=== PATIENT | female | born 1970 ===

== ENCOUNTER 2016-09-14 18:56 | Emergency (ER) | payer OTHER ==
[2016-09-14] MEDS ORDERED: HYDROmorphone 1 MG/ML SYRINGE IVP STA (21:41)
[2016-09-14] MEDS ORDERED: PROMETHAZINE INJ 25 MG in SODIUM CHLORIDE 0.9% 50 ML IV STA (21:41)
[2016-09-14] MEDS ORDERED: HYDROmorphone 1 MG/ML SYRINGE ONE (21:46)
[2016-09-14] MEDS ORDERED: PROMETHAZINE 25 MG/1 ML VIAL ONE (21:46)
[2016-09-14] MEDS ORDERED: IOPAMIDOL-300 100 ML VIAL IVP ONE (22:08)
[2016-09-14] MEDS ORDERED: HYDROcod/ACET 5/325 Prepack 6 PO STA (22:39)
[2016-09-14] MEDS ORDERED: HYDROcod/ACET 5/325 Prepack 6 PO ONE (22:52)
[2016-09-14] MEDS ORDERED: ONDANSETRON ODT 4 MG Prepack 2 TL ONE (22:59)
[2016-09-14] MEDS ORDERED: ONDANSETRON ODT 4 MG Prepack 2 TL STA (23:00)
== END 2016-09-14 23:07 | disposition home or self-care (01) ==
DX: M54.6 Pain in thoracic spine (principal); M54.2 Cervicalgia; M54.5 Low back pain; G89.29 Other chronic pain; F17.200 Nicotine dependence, unspecified, uncomplicated; R03.0 Elevated blood-pressure reading, without diagnosis of hypertension
CPT/HCPCS: 36415; 71275; 80053; 81001; 81025; 83690; 85025; 96374; 96375; 99283; 99284; J1170; Q9967

== ENCOUNTER 2019-12-19 13:54 | Outpatient (CLI) | payer OTHER, MEDICARE ==
--- NOTE | 2019-12-19 15:55 | MRI Report ---
PROCEDURE: Pelvis W/O INDICATIONS: PAIN IN RT LEG, PAIN IN RT HIP, PELVIC/PERINEA TECHNIQUE: Noncontrast coronal T1 spin echo and STIR through the bony pelvis. Sagittal T2 FSE with fat saturati on, oblique axial PD FSE and T2 FSE with fat saturation through the symphysis pubis. COMPARISON: None. FINDINGS: Image quality: Excellent. Tendons and muscles: The attachments of the rectus abdominis and adductor longus muscles anterior to the pubic bodies appear intact bilaterally. The intervening common aponeurosis demonstrates normal morphology and signal. More inferiorly, the adductor longus musculotendinous junctions appear normal , without tendinopathy or tears. More inferior images demonstrate no fascial herniations of the addu ctor longus muscle fibers. Bony structures: No focal bone marrow edema around the symphysis pubis. No productive or erosive [place] changes to suggest osteitis pubis. No stress fractures. No suspicious marrow space occupying les ions. Other tendons: The gluteus medius and minimus tendons appear intact, without associated muscle atrop hy. The iliopsoas tendon appears intact, without adjacent bursal fluid collections. The origin of t he hamstring tendons are intact at the ischial tuberosities. Hip joints: Larger field of view images demonstrate no avascular necrosis of the femoral heads. The acetabular labrum appears intact in the absence of intra-articular contrast. Soft tissues: Immediately lateral to the rectus abdominis tendon fibers, the superficial rings of th e inguinal canals demonstrate no hernias. The proximal sciatic neurovascular bundles appear normal a djacent to the hamstring tendons. No free pelvic fluid. Bladder wall thickness is normal. Genitour inary structures and bowel loops appear normal where visualized. IMPRESSION: No trauma found, no evidence of bursitis or osteoarthritis identified. Within the pelvis visualized a mass lesion or inflammatory process and impinging on the lumbosacral plexus is not found. Etiology o f persistent asymmetric right-sided predominant pelvic and hip pain is not identified. Reviewed by: Jovany Mccracken MD on 12/19/2019 3:53 PM PDT Approved by: Jovany Mccracken MD on 12/19/2019 3:53 PM PDT Station ID: [id number]
== END 2019-12-19 13:55 | disposition home or self-care (01) ==
LOC: DI 13:54
PROVIDERS: ATTEND Family Medicine
DX: M25.551 Pain in right hip (principal); M79.661 Pain in right lower leg; R10.2 Pelvic and perineal pain
CPT/HCPCS: 72195

== ENCOUNTER 2020-11-15 23:48 | Emergency (ER) | payer MEDICARE, OTHER ==
--- OUTSIDE RECORDS SUMMARY | 2020-11-15 23:51 | EXTERNAL MEDICAL SUMMARY RPT | Continuity of Care Document ---
:1970 Demographics Phone Unavailable Preferred Language Citizen Of [place] Marital Status Unknown Presybeterian Affiliation Unknown Race Unknown Ethnic Group Unknown Author Organization [place] Address [address] [phone] Phone Care Team Providers Name Role Phone Dheeraj Davis Unavailable Unavailable Allergies Encounters Medications date description facility 20201111 Loratadine 10 MG Oral Tablet [facility] [id number] Amlodipine 10 MG Oral Tablet [facility] [id number] montelukast 10 MG Oral Tablet [facility] Problems date description facility 20201008 Encounter for preprocedural laboratory examination [facility] 20201008 [facility]) [facility] Procedures date description facility 20201114 [facility] 20201008 [facility] Results Vital Signs date measurement value source 20201008 weight_standard 74.84 lb 20201008 weight_metric 33.95 kg 20201008 temperature_standard 97.5 F 20201008 temperature_metric 36.39 C 20201008 respiration_rate 16 /min 20201008 height_standard 65 in 20201008 height_metric 165.1 cm 20201008 heart_rate 80 /min 20201008 BP_systolic 118 mm[Hg] 20201008 BP_diastolic 60 mm[Hg] 20201008 BMI 27.4 kg/m2 20201114 weight_standard 72.58 lb 20201114 weight_metric 32.92 kg 20201114 temperature_standard 98.1 F 20201114 temperature_metric 36.72 C 20201114 respiration_rate 16 /min 20201114 height_standard 65 in 20201114 height_metric 165.1 cm [id number] heart_rate 75 /min 20201114 BP_systolic 144 mm[Hg] [id number] BP_diastolic 92 mm[Hg] 20201114 BMI 26.6 kg/m2
--- NOTE | 2020-11-15 23:56 | ED Physician Documentation ---
History of Present Illness - Stated complaint Stated Complaint: L SIDE FACE PX - History obtained from History obtained from: Patient - History of Present Illness Timing: Yesterday Pain level now: 4 Improved by: nothing Worsened by: no exacerbating factors - Additonal information Additional information: patient complains of left sided headache that began yesterday. She was treated and released from [facility] emergency department yesterday for this and underwent work up that was based on chief complaint of headache. tests included CT head which was unremarkable. She was discharged with diagnosis of migraine headache. She says the pain has worsened, and now she has developed lesions on the left side of her face and forehead. Denies history of similar symptoms. She has a history of having had chickenpox Review of Systems Constitutional: reports: Reviewed and negative Eyes: reports: Reviewed and negative Skin: reports: Rash Neurologic: reports: Headache. denies: Focal weakness, Numbness PD PAST MEDICAL HISTORY - Past Medical History Respiratory: Asthma Musculoskeletal: Chronic back pain - Past Surgical History Past Surgical History: Yes General: Cholecystectomy, Appendectomy Ortho: Spine surgery - Present Medications Home Medications: Ambulatory Orders Medication Instructions Recorded Confirmed Albuterol Sulfate [Proair Hfa 1 - 2 puffs QID PRN 09/14/16 11/16/20 Inhaler] Cetirizine [ZyrTEC] 10 mg PO DAILY 09/14/16 11/16/20 Cyclobenzaprine [Flexeril] 10 mg PO TID PRN #10 tablet 09/14/16 11/16/20 Esomeprazole Magnesium [Nexium] 40 mg PO DAILY 09/14/16 11/16/20 Fluticasone [Flonase] 1 spray NS DAILY 09/14/16 11/16/20 HYDROcod/ACETAM 5/325 [[place] 5/325] 1 - 2 tablet PO Q6H PRN #20 tablet 11/16/20 Valacyclovir HCl [Valtrex] 1,000 mg PO TID #40 tablet 11/16/20 - Allergies Allergies/Adverse Reactions: Allergies Allergy/AdvReac Type Severity Reaction Status Date / Time latex Allergy Hives Verified 11/15/20 23:53 - Social History Does the pt smoke?: Yes Smoking Status: Current every day smoker Does the pt drink ETOH?: No Does the pt have substance abuse?: No PD ED PE NORMAL - Vitals Vital signs reviewed: Yes - General General: Alert and oriented X 3, No acute distress, Well developed/nourished - HEENT HEENT: PERRL PD ED PE EXPANDED - HEENT HEENT Visual: 1 - rash (erythematous patches with clusters of clear vesicles confined within borders of the individual patches of erythema. the tip of the nose is mildly erythematous, as well) - Eyes Eyes: Left eye, Normal eyelids, Nl conjunctiva/sclera, Normal corneas. No: Injected conj/sclera, Exudate, Fluorescein uptake Results - Vitals Vitals: Oxygen O2 Source Room air PD MEDICAL DECISION MAKING - ED course Complexity details: considered differential, d/w patient ED course: 2 days chaz left side of headache, today developed a rash in the distribution of CN V1 that includes mild erythema at tip of nose, suggestive of early Nair sign. At this time, there does not appear to be any ocular involvement despite lesions being in the area of the eye specifically lateral aspect of left eyebrow. No fluorescein uptake in the left eye, no dendritic or other fluorescein uptake noted, and she has no ocular pain complaints.Will start on Valacyclovie for shingles and provide Vicodin for pain control which is her chief complaint. Departure - Departure Disposition: 01 Home, Self Care Clinical Impression: Shingles Qualifiers: Herpes zoster complications: without complications Qualified Code(s): B02.9 - Zoster without complications Condition: Good Instructions: ED Shingles Follow-Up: Dheeraj Davis ARNP [Primary Care Provider] - Within 3 Days Prescriptions: HYDROcod/ACETAM 5/325 [[place] 5/325] 1 - 2 tablet PO Q6H PRN #20 tablet PRN Reason: Pain Valacyclovir HCl [Valtrex] 1,000 mg PO TID #40 tablet Comments: As we discussed, one of the more feared complications of shingles in the distribution that you have on your face is possibility involvement of the eye. T ypically this manifests as severe eye pain, red eye, and watery discharge. If you develop any of these symptoms, you need to be immediately reevaluated. Otherwise, pain around the eye (on the face, forehead) are typical for shingles and hopefully you have some relief with the prescribed medications. I am prescribing a short course of narcotic pain medication for you. These are potentially dangerous and addictive medications that should be used carefully. These medications may constipate you. Take an tngg-coh-oghldgi stool softener (docusate) twice daily with plenty of water while taking these medications. If you go 24 hours without a bowel movement, take hopg-wpn-[id number] miralax, per package instructions. Do not drink or drive while taking these medications. If you received narcotic or sedating medications while in the emergency department, do not drive for 24 hours. Store this medication in a safe, secure place and out of reach of children. It is a violation of federal law to give or sell this medication to another person or to use in a manner other than prescribed. The ED will not refill narcotic prescriptions, including prescriptions lost or stolen. To dispose of unwanted medications: 1. [facility] at [address] in [place] has a medication drop box. They accept prescription medications (in pill form) Tuesday through Tuesday 9:00 a.m. to 5:00 p.m. 2. The [facility] accepts prescription medications (in pill form only) for disposal year round. Call for more infor mation. 3. Contact the [facility] for the next [facility] sponsored prescription drug collection event. , [phone], or [phone] Discharge Date/Time: 11/16/20 00:59
--- OUTSIDE RECORDS SUMMARY | 2020-11-15 23:56 | EXTERNAL MEDICAL SUMMARY RPT | Continuity of Care Document ---
:1970 Demographics Phone Unavailable Preferred Language [place] Marital Status Unknown [place] Affiliation Unknown Race Unknown Ethnic Group Unknown Author Organization [place] Address [address] [phone] Phone Care Team Providers Name Role Phone Dheeraj Davis Unavailable Unavailable Allergies Encounters Medications date description facility 20201111 Loratadine 10 MG Oral Tablet [facility] [id number] Amlodipine 10 MG Oral Tablet [facility] 01511993 montelukast 10 MG Oral Tablet [facility] Problems date description facility 20201008 Encounter for preprocedural laboratory examination [facility] 20201008 [facility]) [facility] Procedures date description facility 20201114 [facility] 20201008 [facility] Results Vital Signs date measurement value source [...] height_standard 65 in 20201114 height_metric 165.1 cm 17023902 heart_rate 75 /min 20201114 BP_systolic 144 mm[Hg] [id number] BP_diastolic 92 mm[Hg] 20201114 BMI 26.6 kg/m2
[2020-11-16] MEDS ORDERED: HYDROcod/ACETAM 5/325 MG TABLET PO STA (00:12)
[2020-11-16] MEDS ORDERED: HYDROcod/ACET 5/325 Prepack 4 PO STA (00:12)
[2020-11-16] MEDS ORDERED: PROPARACAINE 0.5% OPHTH DROPS 15 ML LEFTEYE STA (00:12)
[2020-11-16] MEDS ORDERED: valACYclovir 500 MG TABLET PO STA (00:41)
[2020-11-16 01:01] VITALS: BP 160/99
== END 2020-11-16 00:59 | disposition home or self-care (01) ==
LOC: ED 23:48
DX: B02.9 Zoster without complications (principal); R51.9 Headache, unspecified; F17.200 Nicotine dependence, unspecified, uncomplicated
CPT/HCPCS: 99282; 99283; A9270; J3490